=== PATIENT | male | born 1955 | race Two or more races ===

== ENCOUNTER → 2017-11-30 11:55 | Outpatient (CLI) | payer OTHER ==
[~2017-11-30 11:55] MED LIST: ADVAIR 2501 DISK W/1 IH; ASA-EC81 MG PO; CIPRO500 MG PO; DALMANE30 MG PO; DIOVAN40 MG PO; DITROPAN5 MG PO; FEXOFENADINE H180 MG PO; FLUOXETINE HCL20 MG PO; FOLIC ACID1 MG PO; FOSAMAX70 MG PO; IRO PLEX PO; LASIX20 MG PO; NEURONTIN800 MG PO; OMEPRAZOLE20 MG PO; PREDNISONE10 MG PO; THEOPHYLLINE600 MG PO; TRAMADOL HCL50 MG PO; TRICOR145 MG PO; ZYLOPRIM300 MG PO
== END | disposition home or self-care (01) ==
LOC: LAB 11:55
DX: T84.53XD Infection and inflammatory reaction due to internal right knee prosthesis, subsequent encounter (principal); Z11.3 Encounter for screening for infections with a predominantly sexual mode of transmission

== ENCOUNTER 2017-12-22 11:40 | Outpatient (CLI) | payer OTHER | END 2017-12-22 14:40 | disposition home or self-care (01) | LOC: SONOGRAMA 11:40 → MAMO-SONO 13:15 → SONOGRAMA 14:40 | DX: B19.20 Unspecified viral hepatitis C without hepatic coma (principal) ==

== ENCOUNTER 2018-03-01 08:40 | Outpatient (CLI) | payer OTHER | END 2018-03-01 09:01 | disposition home or self-care (01) | LOC: LAB 08:40 | DX: C18.6 Malignant neoplasm of descending colon (principal); D51.8 Other vitamin B12 deficiency anemias; I10 Essential (primary) hypertension; D86.0 Sarcoidosis of lung; M15.0 Primary generalized (osteo)arthritis; E03.8 Other specified hypothyroidism; D50.8 Other iron deficiency anemias; E06.2 Chronic thyroiditis with transient thyrotoxicosis; R97.0 Elevated carcinoembryonic antigen [CEA]; R97.8 Other abnormal tumor markers; R70.0 Elevated erythrocyte sedimentation rate; R79.82 Elevated C-reactive protein (CRP); T84.51XD Infection and inflammatory reaction due to internal right hip prosthesis, subsequent encounter; E11.65 Type 2 diabetes mellitus with hyperglycemia; E78.2 Mixed hyperlipidemia; D68.8 Other specified coagulation defects; D64.89 Other specified anemias; Z12.11 Encounter for screening for malignant neoplasm of colon; N42.89 Other specified disorders of prostate ==

== ENCOUNTER 2018-04-29 09:35 | Outpatient (CLI) | payer OTHER | END 2018-04-29 09:44 | disposition home or self-care (01) | LOC: LAB 09:35 | DX: C18.6 Malignant neoplasm of descending colon (principal); B18.2 Chronic viral hepatitis C; D55.0 Anemia due to glucose-6-phosphate dehydrogenase [G6PD] deficiency; D57.3 Sickle-cell trait; D51.8 Other vitamin B12 deficiency anemias; D86.0 Sarcoidosis of lung; E03.8 Other specified hypothyroidism; M15.0 Primary generalized (osteo)arthritis; I10 Essential (primary) hypertension; D50.8 Other iron deficiency anemias; R97.0 Elevated carcinoembryonic antigen [CEA] ==

== ENCOUNTER 2018-05-08 07:34 | Outpatient (CLI) | payer OTHER | END 2018-05-08 07:36 | disposition home or self-care (01) | LOC: TOM 07:34 | DX: C18.6 Malignant neoplasm of descending colon (principal); B18.2 Chronic viral hepatitis C; D55.0 Anemia due to glucose-6-phosphate dehydrogenase [G6PD] deficiency; D57.3 Sickle-cell trait; D51.8 Other vitamin B12 deficiency anemias; D86.0 Sarcoidosis of lung; E03.8 Other specified hypothyroidism; M15.0 Primary generalized (osteo)arthritis; I10 Essential (primary) hypertension | CPT/HCPCS: 71260; Q9965 ==

== ENCOUNTER 2018-06-01 10:05 | Outpatient (CLI) | payer OTHER | END 2018-06-01 10:26 | disposition home or self-care (01) | LOC: LAB 10:05 | DX: E11.65 Type 2 diabetes mellitus with hyperglycemia (principal); N39.0 Urinary tract infection, site not specified; D64.89 Other specified anemias; D68.8 Other specified coagulation defects; E03.8 Other specified hypothyroidism; J43.2 Centrilobular emphysema; R82.79 Other abnormal findings on microbiological examination of urine ==

== ENCOUNTER 2018-06-16 08:59 | Outpatient (CLI) | payer OTHER | END 2018-06-16 09:03 | disposition home or self-care (01) | LOC: LAB 08:59 | DX: E11.65 Type 2 diabetes mellitus with hyperglycemia (principal) ==

== ENCOUNTER 2018-08-24 09:34 | Outpatient (CLI) | payer OTHER | END 2018-08-24 09:35 | disposition home or self-care (01) | LOC: LAB 09:34 | DX: C18.6 Malignant neoplasm of descending colon (principal); B18.2 Chronic viral hepatitis C; D55.0 Anemia due to glucose-6-phosphate dehydrogenase [G6PD] deficiency; D57.3 Sickle-cell trait; D51.8 Other vitamin B12 deficiency anemias; D86.0 Sarcoidosis of lung; E03.8 Other specified hypothyroidism; M15.0 Primary generalized (osteo)arthritis; I10 Essential (primary) hypertension; J43.2 Centrilobular emphysema; D50.8 Other iron deficiency anemias; R97.0 Elevated carcinoembryonic antigen [CEA]; R97.8 Other abnormal tumor markers ==

== ENCOUNTER 2018-09-16 09:00 | Outpatient (CLI) | payer OTHER | END 2018-09-16 09:06 | disposition home or self-care (01) | LOC: LAB 09:00 | DX: E03.8 Other specified hypothyroidism (principal); D68.8 Other specified coagulation defects; N39.0 Urinary tract infection, site not specified; E11.65 Type 2 diabetes mellitus with hyperglycemia; E78.2 Mixed hyperlipidemia; E11.21 Type 2 diabetes mellitus with diabetic nephropathy ==

== ENCOUNTER 2018-12-18 09:29 | Outpatient (CLI) | payer OTHER | END 2018-12-18 09:44 | disposition home or self-care (01) | LOC: LAB 09:29 | DX: D68.8 Other specified coagulation defects (principal); E03.8 Other specified hypothyroidism; E78.2 Mixed hyperlipidemia; E11.65 Type 2 diabetes mellitus with hyperglycemia; Z12.11 Encounter for screening for malignant neoplasm of colon; C18.6 Malignant neoplasm of descending colon; B18.2 Chronic viral hepatitis C; D55.0 Anemia due to glucose-6-phosphate dehydrogenase [G6PD] deficiency; D57.3 Sickle-cell trait; D51.8 Other vitamin B12 deficiency anemias; D86.0 Sarcoidosis of lung; M15.0 Primary generalized (osteo)arthritis; I10 Essential (primary) hypertension; K90.89 Other intestinal malabsorption; R97.0 Elevated carcinoembryonic antigen [CEA]; R97.8 Other abnormal tumor markers ==

== ENCOUNTER 2019-03-20 09:32 | Outpatient (CLI) | payer OTHER | END 2019-03-20 11:03 | disposition home or self-care (01) | LOC: LAB 09:32 | DX: E03.8 Other specified hypothyroidism (principal); E11.65 Type 2 diabetes mellitus with hyperglycemia; E78.2 Mixed hyperlipidemia ==

== ENCOUNTER 2019-03-30 06:47 | Day surgery (SDC) | payer OTHER | END 2019-03-30 13:10 | disposition home or self-care (01) | LOC: AMB-ENDOS 06:47 | DX: K64.1 Second degree hemorrhoids (principal) ==

== ENCOUNTER 2019-04-24 07:38 | Outpatient (CLI) | payer OTHER | END 2019-04-24 07:53 | disposition home or self-care (01) | LOC: LAB 07:38 | DX: C18.6 Malignant neoplasm of descending colon (principal); B18.2 Chronic viral hepatitis C; D55.0 Anemia due to glucose-6-phosphate dehydrogenase [G6PD] deficiency; D57.3 Sickle-cell trait; D51.8 Other vitamin B12 deficiency anemias; D86.0 Sarcoidosis of lung; E03.8 Other specified hypothyroidism; M15.0 Primary generalized (osteo)arthritis; I10 Essential (primary) hypertension; J43.2 Centrilobular emphysema; D50.8 Other iron deficiency anemias; R97.0 Elevated carcinoembryonic antigen [CEA]; R97.8 Other abnormal tumor markers; E11.21 Type 2 diabetes mellitus with diabetic nephropathy; E11.65 Type 2 diabetes mellitus with hyperglycemia ==

== ENCOUNTER 2019-06-16 08:17 | Outpatient (CLI) | payer OTHER | END 2019-06-16 08:22 | disposition home or self-care (01) | LOC: LAB 08:17 | DX: E11.65 Type 2 diabetes mellitus with hyperglycemia (principal) ==

== ENCOUNTER → 2019-08-23 | Outpatient (CLI) | payer OTHER | END | disposition home or self-care (01) | LOC: LAB 09:27 | DX: N18.2 Chronic kidney disease, stage 2 (mild) (principal); E11.21 Type 2 diabetes mellitus with diabetic nephropathy; E11.65 Type 2 diabetes mellitus with hyperglycemia; N39.0 Urinary tract infection, site not specified; Z12.11 Encounter for screening for malignant neoplasm of colon; C18.6 Malignant neoplasm of descending colon; B18.2 Chronic viral hepatitis C; D55.0 Anemia due to glucose-6-phosphate dehydrogenase [G6PD] deficiency; D57.3 Sickle-cell trait; D51.8 Other vitamin B12 deficiency anemias; D86.0 Sarcoidosis of lung; E03.8 Other specified hypothyroidism; M15.0 Primary generalized (osteo)arthritis; J43.2 Centrilobular emphysema; D50.8 Other iron deficiency anemias; R97.0 Elevated carcinoembryonic antigen [CEA]; I11.0 Hypertensive heart disease with heart failure ==

== ENCOUNTER 2019-12-21 09:06 | Outpatient (CLI) | payer OTHER | END 2019-12-21 15:00 | disposition home or self-care (01) | LOC: LAB 09:06 | DX: D50.8 Other iron deficiency anemias (principal); I10 Essential (primary) hypertension; C18.6 Malignant neoplasm of descending colon; B18.2 Chronic viral hepatitis C; D55.0 Anemia due to glucose-6-phosphate dehydrogenase [G6PD] deficiency; D57.3 Sickle-cell trait; D51.8 Other vitamin B12 deficiency anemias; D86.0 Sarcoidosis of lung; E03.8 Other specified hypothyroidism; M15.0 Primary generalized (osteo)arthritis; J43.2 Centrilobular emphysema; R97.0 Elevated carcinoembryonic antigen [CEA]; R97.8 Other abnormal tumor markers; R97.20 Elevated prostate specific antigen [PSA]; D64.89 Other specified anemias ==

== ENCOUNTER 2020-04-14 10:58 | Outpatient (CLI) | payer OTHER | END 2020-04-14 15:00 | disposition home or self-care (01) | LOC: LAB 10:58 | DX: D50.8 Other iron deficiency anemias (principal); D51.8 Other vitamin B12 deficiency anemias; R97.0 Elevated carcinoembryonic antigen [CEA]; R97.8 Other abnormal tumor markers; R97.20 Elevated prostate specific antigen [PSA]; C18.6 Malignant neoplasm of descending colon; B18.2 Chronic viral hepatitis C; D55.0 Anemia due to glucose-6-phosphate dehydrogenase [G6PD] deficiency; D57.3 Sickle-cell trait; D86.0 Sarcoidosis of lung; E03.8 Other specified hypothyroidism; M15.0 Primary generalized (osteo)arthritis; J43.2 Centrilobular emphysema; N18.2 Chronic kidney disease, stage 2 (mild); E11.65 Type 2 diabetes mellitus with hyperglycemia; Z12.11 Encounter for screening for malignant neoplasm of colon ==

== ENCOUNTER → 2020-08-26 10:18 | Outpatient (CLI) | payer OTHER | END | disposition home or self-care (01) | LOC: LAB 10:18 | PROVIDERS: ATTEND Internal Medicine Hematology & Oncology | DX: C18.6 Malignant neoplasm of descending colon (principal); B18.2 Chronic viral hepatitis C; D55.0 Anemia due to glucose-6-phosphate dehydrogenase [G6PD] deficiency; D57.3 Sickle-cell trait; D51.8 Other vitamin B12 deficiency anemias; D86.0 Sarcoidosis of lung; E03.8 Other specified hypothyroidism; M15.0 Primary generalized (osteo)arthritis; I10 Essential (primary) hypertension; J43.2 Centrilobular emphysema; D50.8 Other iron deficiency anemias; E55.9 Vitamin D deficiency, unspecified; R97.0 Elevated carcinoembryonic antigen [CEA]; R97.8 Other abnormal tumor markers; R97.20 Elevated prostate specific antigen [PSA] ==

== ENCOUNTER 2020-12-04 09:46 | Outpatient (CLI) | payer OTHER | END 2020-12-04 09:48 | disposition home or self-care (01) | LOC: LAB 09:46 | PROVIDERS: ATTEND Specialist | DX: J45.998 Other asthma (principal); E78.2 Mixed hyperlipidemia; E03.8 Other specified hypothyroidism; N40.1 Benign prostatic hyperplasia with lower urinary tract symptoms; K75.81 Nonalcoholic steatohepatitis (NASH); N39.0 Urinary tract infection, site not specified; E11.21 Type 2 diabetes mellitus with diabetic nephropathy; E11.65 Type 2 diabetes mellitus with hyperglycemia ==

== ENCOUNTER 2020-12-08 11:18 | Outpatient (CLI) | payer OTHER | END 2020-12-08 11:28 | disposition home or self-care (01) | LOC: LAB 11:18 | PROVIDERS: ATTEND Specialist | DX: N40.1 Benign prostatic hyperplasia with lower urinary tract symptoms (principal); E03.8 Other specified hypothyroidism; E78.2 Mixed hyperlipidemia; K75.81 Nonalcoholic steatohepatitis (NASH); N39.0 Urinary tract infection, site not specified; E11.21 Type 2 diabetes mellitus with diabetic nephropathy; E11.65 Type 2 diabetes mellitus with hyperglycemia ==

== ENCOUNTER 2021-02-19 08:07 | Outpatient (CLI) | payer OTHER | END 2021-02-19 08:21 | disposition home or self-care (01) | LOC: LAB 08:07 | PROVIDERS: ATTEND Specialist | DX: D50.8 Other iron deficiency anemias (principal); R79.89 Other specified abnormal findings of blood chemistry; I10 Essential (primary) hypertension; K76.89 Other specified diseases of liver; D51.8 Other vitamin B12 deficiency anemias; R97.0 Elevated carcinoembryonic antigen [CEA]; R97.20 Elevated prostate specific antigen [PSA]; C18.6 Malignant neoplasm of descending colon; B18.2 Chronic viral hepatitis C; D55.0 Anemia due to glucose-6-phosphate dehydrogenase [G6PD] deficiency; D57.3 Sickle-cell trait; D86.0 Sarcoidosis of lung; E03.8 Other specified hypothyroidism; M15.0 Primary generalized (osteo)arthritis; J43.2 Centrilobular emphysema; R78.2 Finding of cocaine in blood; R64 Cachexia; E11.65 Type 2 diabetes mellitus with hyperglycemia; D51.0 Vitamin B12 deficiency anemia due to intrinsic factor deficiency ==

== ENCOUNTER → 2021-03-24 09:13 | Outpatient (CLI) | payer OTHER | END | disposition home or self-care (01) | LOC: LAB 09:13 | PROVIDERS: ATTEND Ophthalmology | DX: D68.8 Other specified coagulation defects (principal); H25.012 Cortical age-related cataract, left eye ==

== ENCOUNTER → 2021-06-02 10:19 | Outpatient (CLI) | payer OTHER | END | disposition home or self-care (01) | LOC: LAB 10:19 | PROVIDERS: ATTEND Specialist | DX: D64.89 Other specified anemias (principal); Z12.11 Encounter for screening for malignant neoplasm of colon; D50.8 Other iron deficiency anemias; R79.89 Other specified abnormal findings of blood chemistry; I10 Essential (primary) hypertension; R74.02 Elevation of levels of lactic acid dehydrogenase [LDH]; K76.89 Other specified diseases of liver; D51.8 Other vitamin B12 deficiency anemias; E55.9 Vitamin D deficiency, unspecified; R97.0 Elevated carcinoembryonic antigen [CEA]; R97.8 Other abnormal tumor markers; R97.20 Elevated prostate specific antigen [PSA]; C18.6 Malignant neoplasm of descending colon; B18.2 Chronic viral hepatitis C; D55.0 Anemia due to glucose-6-phosphate dehydrogenase [G6PD] deficiency; D57.3 Sickle-cell trait; D86.0 Sarcoidosis of lung; E03.8 Other specified hypothyroidism; M15.0 Primary generalized (osteo)arthritis; J43.2 Centrilobular emphysema ==

== ENCOUNTER → 2021-06-11 12:25 | Outpatient (CLI) | payer OTHER | END | disposition home or self-care (01) | LOC: LAB 12:25 | PROVIDERS: ATTEND Specialist | DX: E78.2 Mixed hyperlipidemia (principal); Z12.11 Encounter for screening for malignant neoplasm of colon; D64.89 Other specified anemias ==

== ENCOUNTER 2021-09-01 08:45 | Outpatient (CLI) | payer OTHER | END 2021-09-01 08:47 | disposition home or self-care (01) | LOC: LAB 08:45 | PROVIDERS: ATTEND Specialist | DX: D64.89 Other specified anemias (principal); E11.21 Type 2 diabetes mellitus with diabetic nephropathy; N39.0 Urinary tract infection, site not specified; E11.65 Type 2 diabetes mellitus with hyperglycemia; E79.0 Hyperuricemia without signs of inflammatory arthritis and tophaceous disease ==

== ENCOUNTER 2021-12-17 09:16 | Outpatient (CLI) | payer OTHER | END 2021-12-17 09:27 | disposition home or self-care (01) | LOC: LAB 09:16 | PROVIDERS: ATTEND Specialist | DX: E03.8 Other specified hypothyroidism (principal); E11.21 Type 2 diabetes mellitus with diabetic nephropathy; N39.8 Other specified disorders of urinary system; D40.0 Neoplasm of uncertain behavior of prostate; E78.2 Mixed hyperlipidemia; E11.65 Type 2 diabetes mellitus with hyperglycemia; Z12.11 Encounter for screening for malignant neoplasm of colon; D64.89 Other specified anemias ==

== ENCOUNTER 2021-12-19 10:23 | Outpatient (CLI) | payer OTHER | END 2021-12-19 10:29 | disposition home or self-care (01) | LOC: LAB 10:23 | PROVIDERS: ATTEND Specialist | DX: E03.8 Other specified hypothyroidism (principal); N39.8 Other specified disorders of urinary system; N40.1 Benign prostatic hyperplasia with lower urinary tract symptoms; E78.2 Mixed hyperlipidemia; E11.65 Type 2 diabetes mellitus with hyperglycemia; Z12.11 Encounter for screening for malignant neoplasm of colon; D64.89 Other specified anemias ==

== ENCOUNTER 2022-02-15 11:10 | Outpatient (CLI) | payer OTHER | END 2022-02-15 11:11 | disposition home or self-care (01) | LOC: LAB 11:10 | PROVIDERS: ATTEND Specialist | DX: E11.65 Type 2 diabetes mellitus with hyperglycemia (principal); D64.9 Anemia, unspecified; Z20.828 Contact with and (suspected) exposure to other viral communicable diseases ==

== ENCOUNTER 2022-02-26 17:52 | Inpatient (IN) | payer OTHER ==
[~2022-02-26] VITALS: Ht 172.7 cm; Wt 99.8 kg
[2022-02-26] MEDS ORDERED: FLOVENT DISKUS50 MCG IH (18:08)
[2022-02-26] MEDS ORDERED: PROZAC20 MG PO (18:09)
[2022-02-26] MEDS ORDERED: TRAZODONE HCL150 MG (18:10)
[2022-02-26] MEDS ORDERED: ALLEGRA-D 24 H1 EACH PO (18:11)
[2022-02-26] MEDS ORDERED: SYNTHROID50 MCG PO (18:11)
--- NOTE | 2022-02-26 18:11 | NUR ---
SE RECIBE PTE ALERTA Y ORIENTADO X3,REFERIDO POR EL ,JONES MEDICO PRIMARIO EL DR.MARCUS MAYS .EL PTE LLEGO A LA JAZMINE DE ER,OXIGENANDO 89,AMBAS PIERNA HINFLAMADAS RESPIRANDO AGITADO.
--- NOTE | 2022-02-26 19:39 | NUR ---
PACIENTE SE LE REALIZAN MUESTRAS DE [facility], SE CONECTA A PACIENTE A MOPNITOR CARDIACO OXIMETRIA DE PULSO Y SE REALIZA EKG, MUESTRA DE COVID 19, SE REALIZA PORTABLE Y BIPAP.
== END 2022-03-19 14:09 | disposition home or self-care (01) | DRG 291 ==
LOC: ER 17:52 → MEDJ 19:29 → SEC-K 19:29 → MEDI 02-27 09:15 → MEDJ 03-02 11:41
PROVIDERS: ADMIT Internal Medicine Geriatric Medicine; ATTEND Internal Medicine Geriatric Medicine
PROC: B24BZZZ Ultrasonography of Heart with Aorta (ICD-10-PCS; principal; 2022-02-27)
PROC: 02HV33Z Insertion of Infusion Device into Superior Vena Cava, Percutaneous Approach (ICD-10-PCS; 2022-02-27)
PROC: 4A12X4Z Monitoring of Cardiac Electrical Activity, External Approach (ICD-10-PCS; 2022-02-27)
PROC: BW24ZZZ Computerized Tomography (CT Scan) of Chest and Abdomen (ICD-10-PCS; 2022-03-01)
DX: I11.0 Hypertensive heart disease with heart failure (principal); I50.31 Acute diastolic (congestive) heart failure; J90 Pleural effusion, not elsewhere classified; J45.21 Mild intermittent asthma with (acute) exacerbation; I50.811 Acute right heart failure; R06.02 Shortness of breath; R06.03 Acute respiratory distress; J98.4 Other disorders of lung; J84.10 Pulmonary fibrosis, unspecified; R09.02 Hypoxemia; D86.89 Sarcoidosis of other sites; D64.9 Anemia, unspecified; J44.9 Chronic obstructive pulmonary disease, unspecified; I95.89 Other hypotension; G47.33 Obstructive sleep apnea (adult) (pediatric); E03.8 Other specified hypothyroidism; Z99.89 Dependence on other enabling machines and devices; I87.2 Venous insufficiency (chronic) (peripheral); I12.9 Hypertensive chronic kidney disease with stage 1 through stage 4 chronic kidney disease, or unspecified chronic kidney disease; N18.30 Chronic kidney disease, stage 3 unspecified; D57.3 Sickle-cell trait; Z20.822 Contact with and (suspected) exposure to COVID-19; M10.9 Gout, unspecified

== ENCOUNTER 2022-03-19 21:06 | Inpatient (IN) | payer OTHER ==
[~2022-03-19] VITALS: Ht 172.7 cm; Wt 99.8 kg
[~2022-03-19 21:06] MED LIST changes: +ALLEGRA-D 24 H1 EACH PO; +FLOVENT DISKUS50 MCG IH; +PROZAC20 MG PO; +SYNTHROID50 MCG PO; +TRAZODONE HCL150 MG
== END 2022-03-26 20:02 | disposition home or self-care (01) | DRG 314 ==
LOC: ER 21:06 → MEDI 03-20 14:22
PROVIDERS: ADMIT Specialist; ATTEND Specialist
PROC: 5A0955A Assistance with Respiratory Ventilation, Greater than 96 Consecutive Hours, High Flow/Velocity Cannula (ICD-10-PCS; principal; 2022-03-20)
DX: I27.29 Other secondary pulmonary hypertension (principal); J96.01 Acute respiratory failure with hypoxia; I50.33 Acute on chronic diastolic (congestive) heart failure; A31.0 Pulmonary mycobacterial infection; I13.0 Hypertensive heart and chronic kidney disease with heart failure and stage 1 through stage 4 chronic kidney disease, or unspecified chronic kidney disease; N18.31 Chronic kidney disease, stage 3a; D86.89 Sarcoidosis of other sites; J44.9 Chronic obstructive pulmonary disease, unspecified; G47.33 Obstructive sleep apnea (adult) (pediatric); Z20.822 Contact with and (suspected) exposure to COVID-19